=== PATIENT | female | born 1950 | race Caucasian/White ===

== ENCOUNTER → 2022-03-20 | Outpatient (CLI) | payer OTHER, SELFPAY ==
--- NOTE | 2022-03-20 15:26 | CT_ITS ---
PROCEDURE: CT RIGHT KNEE WITHOUT CONTRAST REASON FOR EXAM: Female, 71 years old. Preoperative planning for the [employer] Robotic knee surgery. Knee pain. TECHNIQUE: Transaxial CT of the hip, knee and ankle were obtained. Coronal and sagittal reconstruction images of the knee were provided. Individualized dose optimization techniques were used for this CT. COMPARISON: None. FINDINGS: Standard protocol for the preoperative planning for the [employer] robotic knee surgery was performed. There is mild osteoarthrosis of the hip and knee. CT/Extremity Lower without Contra IMPRESSION: Preoperative [employer] knee surgical CT evaluation with findings as described above. Electronically Signed: Stephen Woodson, at 16:20 EST ,
== END | disposition home or self-care (01) ==
PROVIDERS: PCP Physician Assistant; Referring Provider Specialist; Visit Provider Specialist
DX: Z01.818 Encounter for other preprocedural examination (principal); M17.11 Unilateral primary osteoarthritis, right knee; M16.10 Unilateral primary osteoarthritis, unspecified hip; M21.161 Varus deformity, not elsewhere classified, right knee
CPT/HCPCS: 73700